=== PATIENT | female | born 1980 | race American Indian/Alaskan Native ===

== ENCOUNTER 2018-05-18 10:27 | Emergency (ER) | payer OTHER ==
[2018-05-18] MEDS ORDERED: MOTRIN PO ONE (11:04)
[2018-05-18] MEDS ORDERED: NORCO 5/325 PO ONE (11:04)
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
[2018-05-18 12:41] VITALS: BP 126/72
--- NOTE | 2018-05-18 14:16 | XRay Report ---
CERVICAL SPINE, 3 views: History: Neck pain. Findings: The vertebral bodies, disk spaces, posterior elements and prevertebral soft tissues are intact. The dens is intact. No acute fracture or malalignment is identified. Mild degenerative disc disease is noted at C4-5 and C5-6. Impression: Mild cervical spondylosis. No evidence for acute injury to the cervical spine.
== END 2018-05-18 12:40 | disposition home or self-care (01) ==
LOC: ED 10:27
DX: S40.022A Contusion of left upper arm, initial encounter (principal); S13.4XXA Sprain of ligaments of cervical spine, initial encounter; J45.909 Unspecified asthma, uncomplicated; V89.2XXA Person injured in unspecified motor-vehicle accident, traffic, initial encounter; Y93.89 Activity, other specified; Y92.410 Unspecified street and highway as the place of occurrence of the external cause; Y99.8 Other external cause status
CPT/HCPCS: 72040; 99284

== ENCOUNTER 2018-11-15 08:37 | Outpatient (CLI) | payer BC ==
--- NOTE | 2018-11-15 09:37 | XRay Report ---
BILATERAL HIP RADIOGRAPHS WITH PELVIS INDICATION: Left hip pain. COMPARISON: None similar. FINDINGS: An AP pelvic radiograph with frog-leg projection of bilateral hips demonstrate normal femoral head contours bilaterally. Imaged bilateral SI and hip joints appear intact. Mild bilateral acetabular degenerative spurring laterally, left more than right. Few small pelvic phleboliths. Nonobstructive bowel gas pattern. CONCLUSION: No acute radiographic abnormality, though mild degenerative changes noted, as described. Please correlate. Thank you for the opportunity to participate in this patient's care.
--- NOTE | 2018-11-15 11:04 | Mammography Report ---
BILATERAL DIGITAL SCREENING MAMMOGRAM WITH CAD:11/15/18 CLINICAL: Baseline screening. COMPARISON:None. FINDINGS: The breasts are mostly fatty. A partially circumscribed low density oval right lower outer periareolar asymmetry requires additional imaging. No architectural distortion or suspicious calcifications. The left breast is negative. IMPRESSION: Right asymmetry requiring further workup. BI-RADS CATEGORY: 0 -- Needs Additional Imaging RECOMMENDATION: Recall for a targeted right breast ultrasound to evaluate for a cyst or solid mass at 7 o'clock approximately 2 cm from the nipple. ACR BI-RADS MAMMOGRAPHIC CODES: 0 = Needs additional imaging evaluation; 1 = Negative; 2 = Benign; 3 = Probably benign; 4 = Suspicious; 5 = Malignant; 6 = Known biopsy-proven malignancy COMMENT: 1. Dense breast tissue, i.e., adenosis, fibrocystic changes, etc., may obscure an underlying neoplasm. 2. Approximately 10% of cancers are not detected with mammography. 3. A negative mammography report should not delay biopsy if a clinically suspicious mass is present.
--- NOTE | 2018-11-15 12:44 | Ultrasound Report ---
ULTRASOUND PELVIS COMPLETE - TRANSABDOMINAL AND TRANSVAGINAL: INDICATION: Pelvic and perineal pain. COMPARISON: None similar. FINDINGS: Transabdominal and transvaginal pelvic sonography performed in this patient with LMP of 11/10/2018 demonstrates an anteverted, fairly homogenous 9 x 4.8 x 5.5 cm uterus transabdominally. Normal imaged urinary bladder. Echogenic endometrial stripe thickness 0.5 cm as on endovaginal image 5. Cervix closed. No significant pelvic free fluid. Physiologic right ovary estimated at 3.5 x 2.8 x 2.2 cm. Left ovary though possibly enlarged at 5.6 x 7.1 x 5 cm with approximately 5.1 x 5 x 3.6 cm intrinsic/peripheral hypoechoic though complex mass lesion as on endovaginal images 32-35, amongst others. Some peripheral vascularity noted without definite demonstrable intrinsic blood flow endovaginally, though some intrinsic blood flow suggested on transabdominal color flow images 26-28. CONCLUSION: 1. Approximately 5 cm complex left adnexal/ovarian hypoechoic mass, inadequately characterized on this exam alone, as described above. 2. Other findings, as above. Please also correlate clinically, with prior relevant imaging if available, or further characterize/evaluate as with followup pelvic sonography in approximately 6 weeks or opposite phase of the menstrual cycle to assess for interval change or resolution. Thank you for the opportunity to participate in this patient's care.
== END 2018-11-15 08:38 | disposition home or self-care (01) ==
LOC: US 08:37
PROVIDERS: ATTEND Obstetrics & Gynecology
DX: Z12.31 Encounter for screening mammogram for malignant neoplasm of breast (principal); M16.0 Bilateral primary osteoarthritis of hip; R10.2 Pelvic and perineal pain; J45.909 Unspecified asthma, uncomplicated
CPT/HCPCS: 73521; 76830; 76856; 77067

== ENCOUNTER 2018-11-23 08:35 | Outpatient (CLI) | payer BC ==
--- NOTE | 2018-11-23 09:11 | Ultrasound Report ---
TARGETED RIGHT BREAST ULTRASOUND: 11/23/18 08:35:00 CLINICAL: Abnormal screening mammogram. COMPARISON: 11/15/18 FINDINGS: Ultrasound of the right breastdemonstrated an oval solid smooth hypoechoic mass at 7 o'clock 2 cm from the nipple. It correlates with the mammographic density and measures 8 x 5 x 7 mm. It has a hyperechoic capsule or pseudocapsule and produces shadowing. IMPRESSION: A probably benign 8mm solid mass at 7 o'clock 2 cm from the nipple. Sonographic characteristics suggest benign fibroadenoma. BI-RADS 3 - - Probably Benign RECOMMENDATION: 6 month followup right breast ultrasound to reevaluate the size of the mass.
== END 2018-11-23 08:36 | disposition home or self-care (01) ==
LOC: US 08:35
PROVIDERS: ATTEND Obstetrics & Gynecology
DX: R92.8 Other abnormal and inconclusive findings on diagnostic imaging of breast (principal); J45.909 Unspecified asthma, uncomplicated

== ENCOUNTER 2019-01-30 08:45 | Outpatient (CLI) | payer BC ==
--- NOTE | 2019-01-30 12:45 | Ultrasound Report ---
Pelvic and transvaginal sonography: Compared to 11/15/18. History: Ovarian cysts left side. Findings: Uterus measures 13.2 x 4.7 x 7.6 cm. Endometrial thickness 1.5 mm. No mass within the uterus. Right ovary 3.1 x 1.8 x 3.5 cm. No mass. Left ovary 5 x 6.4 x 4.7 cm complex cyst in the left ovary measures 5.1 cm no fluid in the cul-de-sac. Impression: Complex mass in the left ovary. No significant interval change.
== END 2019-01-30 08:46 | disposition home or self-care (01) ==
LOC: US 08:45
PROVIDERS: ATTEND Obstetrics & Gynecology
DX: N83.8 Other noninflammatory disorders of ovary, fallopian tube and broad ligament (principal); J45.909 Unspecified asthma, uncomplicated
CPT/HCPCS: 76830; 76856

== ENCOUNTER 2019-02-01 10:04 | Outpatient (CLI) | payer BC ==
[2019-02-01 10:57] LABS: Creatine Kinase MB 3.2 ng/mL (0.0-4.0)
--- NOTE | 2019-02-01 14:41 | XRay Report ---
CHEST 2 VIEWS INDICATION: Dizziness, chest pain. COMPARISON: None similar. FINDINGS: PA and lateral chest radiographs demonstrate normal cardiomediastinal silhouette. Clear lungs. Mild multilevel mid thoracic spine degenerative spurring. Slight osteopenia not excluded. Abdomen shielded. CONCLUSION: No acute disease in the chest. Thank you for the opportunity to participate in this patient's care.
== END 2019-02-01 10:05 | disposition home or self-care (01) ==
LOC: LAB 10:04
PROVIDERS: ATTEND Family Medicine
DX: R07.9 Chest pain, unspecified (principal); R42 Dizziness and giddiness
CPT/HCPCS: 36415; 71046; 82553; 83036; 84484

== ENCOUNTER 2019-02-11 12:41 | Emergency (ER) | payer BC ==
[2019-02-11 13:05] VITALS: BP 138/94
--- NOTE | 2019-02-11 13:06 | Emergency Department Report ---
Blank Doc - Documentation Documentation: pt presents to the ED for congestion, sneezing, mild cough that began yesterday took benadryl and singulair no fever PMHx asthma (+) seasonal allergies LNMP January 24 non smoker occ drinker no drug use
--- NOTE | 2019-02-11 14:13 | XRay Report ---
PROCEDURE: XR CHEST ROUTINE 2V TECHNIQUE: Frontal and lateral chest radiographs. HISTORY: cough COMPARISONS: None FINDINGS: The cardiomediastinal silhouette is normal. No consolidation. No pleural effusion. No pneumothorax. No acute osseous abnormality. IMPRESSION: No acute process in the chest. This document is electronically signed by Niya Driscoll., Feb 11 2019 02:11:29 PM ET
[2019-02-11] MEDS ORDERED: LIDOCAINE VISCOUS 2% PO ONE (14:23)
[2019-02-11] MEDS ORDERED: VICKS SINEX NS ONE (14:23)
--- NOTE | 2019-02-11 14:32 | Emergency Department Report ---
ED General Adult HPI - General Chief complaint: Upper Respiratory Infection Stated complaint: COUGH/CHEST PAIN Time Seen by Provider: 02/11/19 13:03 Source: patient Mode of arrival: Ambulatory Limitations: No Limitations - History of Present Illness Initial comments: Patient is a 38-year-old femalewith past medical history presents with cough and sneezing and congestion. Patient's symptoms are moderate coughing makes her symptoms were nothing makes it better. Patient states that she's also been around sick contacts. She works as an employee upstairs at [employer] patient has no chest pain no headache no neck pain no fever. Severity scale (0 -10): 4 - Related Data Previous Rx's Medication Instructions Recorded Last Taken Type Cyclobenzaprine [Flexeril] 10 mg PO QHS PRN #10 tablet 05/18/18 Unknown Rx Ibuprofen [Motrin] 600 mg PO Q8H PRN #30 tablet 05/18/18 Unknown Rx Loratadine [Allergy] 10 mg PO DAILY #30 tablet 02/11/19 Unknown Rx predniSONE [Deltasone] 20 mg PO BID #10 tab 02/11/19 Unknown Rx Allergies Allergy/AdvReac Type Severity Reaction Status Date / Time No Known Allergies Allergy Verified 02/11/19 12:42 ED Review of Systems ROS: Stated complaint: COUGH/CHEST PAIN Other details as noted in HPI Constitutional: denies: chills, fever Eyes: denies: eye pain, eye discharge, vision change ENT: denies: ear pain, throat pain Respiratory: cough. denies: shortness of breath, wheezing Cardiovascular: denies: chest pain, palpitations Endocrine: no symptoms reported Gastrointestinal: denies: abdominal pain, nausea, diarrhea Genitourinary: denies: urgency, dysuria, discharge Musculoskeletal: denies: back pain, joint swelling, arthralgia Skin: denies: rash, lesions Neurological: denies: headache, weakness, paresthesias Psychiatric: denies: anxiety, depression Hematological/Lymphatic: denies: easy bleeding, easy bruising ED Past Medical Hx - Past Medical History Hx Asthma: Yes - Surgical History Additional Surgical History: x3. tubal ligation - Social History Smoking Status: Never Smoker Substance Use Type: Alcohol - Medications Home Medications: Home Medications Medication Instructions Recorded Confirmed Last Taken Type Cyclobenzaprine [Flexeril] 10 mg PO QHS PRN #10 tablet 05/18/18 Unknown Rx Ibuprofen [Motrin] 600 mg PO Q8H PRN #30 tablet 05/18/18 Unknown Rx Loratadine [Allergy] 10 mg PO DAILY #30 tablet 02/11/19 Unknown Rx predniSONE [Deltasone] 20 mg PO BID #10 tab 02/11/19 Unknown Rx ED Physical Exam - General Limitations: No Limitations General appearance: alert, in no apparent distress - Head Head exam: Present: atraumatic, normocephalic - Eye Eye exam: Present: normal appearance - ENT ENT exam: Present: mucous membranes moist, other (nasal congestion ) - Neck Neck exam: Present: normal inspection - Respiratory Respiratory exam: Present: normal lung sounds bilaterally. Absent: respiratory distress - Cardiovascular Cardiovascular Exam: Present: regular rate, normal rhythm. Absent: systolic murmur, diastolic murmur, rubs, gallop - GI/Abdominal GI/Abdominal exam: Present: soft, normal bowel sounds - Extremities Exam Extremities exam: Present: normal inspection - Back Exam Back exam: Present: normal inspection - Neurological Exam Neurological exam: Present: alert, oriented X3 - Psychiatric Psychiatric exam: Present: normal affect, normal mood - Skin Skin exam: Present: warm, dry, intact, normal color. Absent: rash ED Course Vital Signs 02/11/19 13:04 Temperature 98.3 F Pulse Rate 104 H Respiratory 22 Rate Blood Pressure 138/94 [right`] O2 Sat by Pulse 99 Oximetry ED Medical Decision Making - Medical Decision Making Cdx: Viral URI I willl get afrin and viscous lidocaine for patient. Will send patient home with steroid pack. Discussed plan with patient. Patient agrees with plan additional verbal discharge instructions were given. Critical care attestation.: If time is entered above; I have spent that time in minutes in the direct care of this critically ill patient, excluding procedure time. ED Disposition Clinical Impression: Sneezing, Viral URI Disposition: DC- TO HOME OR SELFCARE Is pt being admited?: No Does the pt Need Aspirin: No Condition: Stable Instructions: Upper Respiratory Infection (ED) Prescriptions: Loratadine [Allergy] 10 mg PO DAILY #30 tablet predniSONE [Deltasone] 20 mg PO BID #10 tab Referrals: VICTORIA LARA DO [Primary Care Provider] - 3-5 Days
== END 2019-02-11 14:52 | disposition home or self-care (01) ==
LOC: ED 12:41
DX: J06.9 Acute upper respiratory infection, unspecified (principal); J45.909 Unspecified asthma, uncomplicated; Z98.51 Tubal ligation status
CPT/HCPCS: 71046; 99283

== ENCOUNTER 2019-03-13 08:27 | Outpatient (CLI) | payer BC ==
--- NOTE | 2019-03-13 11:42 | Ultrasound Report ---
ULTRASOUND PELVIC COMPLETE ULTRASOUND TRANSVAGINAL HISTORY: Ovarian cyst. COMPARISON: . TECHNIQUE: Transabdominal and transvaginal ultrasound with color doppler interrogation. FINDINGS: Uterus: Anteverted. The uterus is mildly enlarged measuring 13.5 x 5.0 x 10 years. No obvious uterine fibroid disease is appreciated. Normal cervix. Endometrium: 9.7 mm. No focal abnormality. Right ovary: 2.7 x 2.0 x 2.0 cm. No focal abnormality. Left ovary: 5.8 x 4.5 x 5.3 cm. A 4.6 x 3.7 x 4.4 cm cyst containing debris is identified in the left ovary. No evidence for internal septations or calcifications. This has decreased from 5.1 x 3.9 x 4.0 cm on the previous exam. No pelvic fluid or mass is identified. Normal color doppler interrogation. IMPRESSION: Mildly enlarged uterus but no obvious uterine fibroids. 4.6 cm cyst containing debris in the left ovary which has decreased slightly since the previous exam.
== END 2019-03-13 08:28 | disposition home or self-care (01) ==
LOC: US 08:27
PROVIDERS: ATTEND Obstetrics & Gynecology
DX: N85.2 Hypertrophy of uterus (principal); J45.909 Unspecified asthma, uncomplicated
CPT/HCPCS: 76830; 76856

== ENCOUNTER 2019-07-02 06:07 | Day surgery (SDC) | payer BC ==
[2019-07-02] MEDS ORDERED: SODIUM CHLORIDE 0.9% 1000 ML 1,000 ML IV SCH (07:00)
--- NOTE | 2019-07-02 07:36 | Anesthesia Consultation ---
Anesthesia Consult and Med Hx Date of service: 07/02/19 - Airway Anesthetic Teeth Evaluation: Good ROM Head & Neck: Adequate Mental/Hyoid Distance: Adequate Mallampati Class: Class I Intubation Access Assessment: Good - Pulmonary Exam CTA: Yes - Cardiac Exam Cardiac Exam: RRR - Pre-Operative Health Status ASA Pre-Surgery Classification: ASA2 Proposed Anesthetic Plan: MAC - Pulmonary Hx Asthma: Yes
--- NOTE | 2019-07-02 07:37 | Anesthesia Day of Surgery ---
Anesthesia Day of Surgery - Day of Surgery Patient Examined: Yes Patient H&P Reviewed: Yes Patient is NPO: Yes Beta Blockers: No
[2019-07-02] MEDS ORDERED: MIDAZOLAM 2 MG/2 ML INJ ONE (07:40)
[2019-07-02] MEDS ORDERED: PROPOFOL 200 MG/20 ML VIAL IV ONE ×2 (07:41)
[2019-07-02] MEDS ORDERED: LIDOCAINE (2%) 20 MG/1 ML VIAL 20 ML MDV INFILTRATI ONE (07:53)
--- NOTE | 2019-07-02 08:25 | Short Stay Summary ---
Short Stay Documentation Date of service: 07/02/19 Narrative H&P: Patient is a 39 yo aaf who presents for egd/colonoscopy. Pt with dyspepsia/gerd symptoms, chronic abd pain, constipation and hematochezia. chronic symptoms with recent worsening. no prior endoscopy. - History H&P: obtained from office Past Medical History: other (no changes from office note) Past Surgical History: Other (no changes) Social history: no significant social history - Allergies and Medications Current Medications: Allergies No Known Allergies Allergy (Verified 02/11/19 12:42) Home Medications Medication Instructions Recorded Confirmed Last Taken Type Ibuprofen [Motrin] 600 mg PO Q8H PRN #30 tablet 05/18/18 06/29/19 Unknown Rx Loratadine [Allergy] 10 mg PO DAILY #30 tablet 02/11/19 06/29/19 06/29/19 Rx Advair Diskus 250-50 mcg 1 puff INHALATION BID 06/29/19 07/02/19 07/02/19 History Albuterol *Only Ed* 2 puff INHALATION PRN PRN 06/29/19 07/02/19 06/27/19 History Active Medications Sodium Chloride (Nacl 0.9% 1000 Ml) 1,000 mls @ 50 mls/hr IV DIRECT FERNANDO Last Admin: 07/02/19 07:31 Dose: 50 mls/hr Documented by: - Physical exam General appearance: no acute distress Lungs: Clear to auscultation Heart: Regular rate Gastrointestinal: normal - Brief post op/procedure progress note Date of procedure: 07/02/19 Pre-op diagnosis: abdominal pain, dyspepsia, hematochezia Post-op diagnosis: other (gastric ulcer, gastritis; internal hemorrhoids) Procedure: 1. EGD with biopsy 2. Colonoscopy Anesthesia: MAC Findings: EGD: small, clean based gastric ulcer; gastritis Colonoscopy: internal hemorrhoids Surgeon: KAVON CARLSON Estimated blood loss: minimal Pathology: list (Fariha Padilla - gastric biopsies) Specimen disposition: to lab Condition: stable - Disposition Condition at discharge: Good Disposition: DC-01 TO HOME OR SELFCARE Short Stay Discharge Plan Follow up with: VICTORIA LARA DO [Primary Care Provider] - 7 Days
--- NOTE | 2019-07-02 08:33 | Operative Report ---
Operative Report Operative Report: Esophagogastroduodenoscopy Procedure Note with Biopsies Date of procedure: 07/02/2019 Endoscopist: Jordy Feliciano Pre-op diagnosis: Dyspepsia, GERD, abdominal pain Post-op diagnosis: Small clean based gastric ulcer, mild erythematous gastric mucosa Anesthesia: MAC Complications: No immediate complications Estimated blood loss: minimal Procedure: After consent was obtained, the patient was placed in the left lateral decubitus position. The olympus endoscope was inserted into the patient's mouth under direct vision, and advanced into the 2nd portion of the duodenum without difficulty. The patient tolerated the procedure well. The views of the mucosa were good. Patient's vital signs were monitored continuously throughout the procedure. Findings: The esophagus appears normal There was a small (~3 mm) clean based ulcer in the incisura. There was mild erythematous mucosa in the gastric body. Gastric biopsies were obtained to evaluate for h pylori. The duodenum appeared normal. Impression: 1. Small, clean based gastric ulcer. 2. Erythematous gastric mucosa. Biopsied to evaluate for H pylori. Recommendations: -follow-up pathology -continue anti-acid medication daily -avoid NSAID's -colonoscopy to follow
--- NOTE | 2019-07-02 08:37 | Operative Report ---
Operative Report Operative Report: Colonoscopy Procedure Note Date of procedure: 07/02/2019 Endoscopist: Jordy Feliciano Pre-op diagnosis: Hematochezia, abdominal pain, constipation Post-op diagnosis: Internal hemorrhoids Anesthesia: MAC Complications: No immediate complications Estimated blood loss: None Procedure: After consent was obtained, the patient was placed in the left lateral decubitus position. The olympus colonoscope was inserted into the patient's rectum under direct vision, and advanced to the cecum without difficulty. The patient tolerated the procedure well. The views of the mucosa were good. The quality of prep was good. The patient's vital signs were monitored continuously throughout the procedure. Findings: Internal hemorrhoids were visualized on retroflexion view. Otherwise, the colon appeared normal. Impression: 1. Internal hemorrhoids, otherwise normal colonoscopy Recommendations: -bowel regimen daily to avoid constipation/straining -hemorrhoidal cream/suppository as needed -return to GI clinic as scheduled
[2019-07-02 08:58] VITALS: BP 116/71
--- NOTE | 2019-07-02 14:23 | Post Anesthesia Evaluation ---
- Post Anesthesia Evaluation Patient Participated: Yes Airway Patent: Yes Stable Respiratory Function: Yes Nausea/Vomiting: No Temp > 96.8F: Yes Pain Manageable: Yes Adequeate Hydration: Yes Anesthesia Complications: No Block Receding Appropriately: Not Applicable Patient on Ventilator: No
== END 2019-07-02 06:08 | disposition home or self-care (01) ==
LOC: GIO 06:07
PROVIDERS: ATTEND Internal Medicine Gastroenterology
DX: K92.1 Melena (principal); K29.50 Unspecified chronic gastritis without bleeding; K59.00 Constipation, unspecified; R10.9 Unspecified abdominal pain; K64.8 Other hemorrhoids; K30 Functional dyspepsia; K21.9 Gastro-esophageal reflux disease without esophagitis; J45.909 Unspecified asthma, uncomplicated; B96.81 Helicobacter pylori [H. pylori] as the cause of diseases classified elsewhere; Z79.899 Other long term (current) drug therapy; Z98.891 History of uterine scar from previous surgery; Z98.890 Other specified postprocedural states
CPT/HCPCS: 43239; 45378; 88305; 88342; J2250; J2704; J7030

== ENCOUNTER 2019-07-13 16:06 | Outpatient (CLI) | payer BC ==
[2019-07-13 16:23] LABS: Basophils # (Auto) 0.1 K/mm3 (0.0-0.1); Basophils % (Auto) 0.9 % (0.0-1.8); Eosinophils # (Auto) 0.3 K/mm3 (0.0-0.4); Hematocrit 33.7 % (30.3-42.9); Hemoglobin 10.7 gm/dl (10.1-14.3); Lymphocytes # (Auto) 3.3 K/mm3 (1.2-5.4); Lymphocytes % (Auto) 35.5 % (13.4-35.0); Mean Corpuscular HGB Conc 32 % (30-34); Mean Corpuscular Volume 73 fl (79-97); Monocytes # (Auto) 0.6 K/mm3 (0.0-0.8); Monocytes % (Auto) 6.6 % (0.0-7.3); Platelet Count 269 K/mm3 (140-440); Red Blood Count 4.63 M/mm3 (3.65-5.03); Red Cell Distribution Width 15.8 % (13.2-15.2)
[2019-07-13 17:27] LABS: Alanine Aminotransferase 18 units/L (7-56); Albumin 4.3 g/dL (3.9-5); BUN/Creatinine Ratio 10; Blood Urea Nitrogen 9 mg/dL (7-17); Calcium 9.2 mg/dL (8.4-10.2); Chol/HDL Ratio 3.69 %; HDL Cholesterol 42 mg/dL (40-59); Hemolysis Index 0; LDL Cholesterol,Direct 104 mg/dL (50-130)
[2019-07-18 14:28] LABS: Vitamin D, 25-OH, D2 <4 ng/mL
== END 2019-07-13 16:07 | disposition home or self-care (01) ==
LOC: LAB 16:06
PROVIDERS: ATTEND Family Medicine
DX: Z00.00 Encounter for general adult medical examination without abnormal findings (principal); J45.909 Unspecified asthma, uncomplicated
CPT/HCPCS: 36415; 80053; 80061; 82306; 83036; 84439; 84443; 85025

== ENCOUNTER 2019-09-27 08:45 | Outpatient (CLI) | payer BC ==
[2019-09-27 09:04] LABS: Basophils # (Auto) 0.1 K/mm3 (0.0-0.1); Basophils % (Auto) 1.4 % (0.0-1.8); Eosinophils # (Auto) 0.2 K/mm3 (0.0-0.4); Eosinophils % (Auto) 3.7 % (0.0-4.3); Hematocrit 32.9 % (30.3-42.9); Hemoglobin 10.5 gm/dl (10.1-14.3); Lymphocytes # (Auto) 2.6 K/mm3 (1.2-5.4); Lymphocytes % (Auto) 44.1 % (13.4-35.0); Mean Corpuscular HGB Conc 32 % (30-34); Mean Corpuscular Volume 72 fl (79-97); Monocytes # (Auto) 0.4 K/mm3 (0.0-0.8); Platelet Count 286 K/mm3 (140-440); Red Blood Count 4.57 M/mm3 (3.65-5.03); Red Cell Distribution Width 16.9 % (13.2-15.2)
== END 2019-09-27 08:46 | disposition home or self-care (01) ==
LOC: LAB 08:45
PROVIDERS: ATTEND Nurse Practitioner Women's Health
DX: Z13.89 Encounter for screening for other disorder (principal); Z13.29 Encounter for screening for other suspected endocrine disorder; Z13.0 Encounter for screening for diseases of the blood and blood-forming organs and certain disorders involving the immune mechanism
CPT/HCPCS: 36415; 84146; 84443; 85025

== ENCOUNTER 2019-12-07 08:13 | Outpatient (CLI) | payer BC ==
[2019-12-07 09:27] LABS: Hematocrit 33.7 % (30.3-42.9); Hemoglobin 10.5 gm/dl (10.1-14.3); Mean Corpuscular HGB Conc 31 % (30-34); Mean Corpuscular Volume 72 fl (79-97); Platelet Count 291 K/mm3 (140-440); Red Blood Count 4.71 M/mm3 (3.65-5.03); Red Cell Distribution Width 16.3 % (13.2-15.2)
[2019-12-07 09:51] LABS: BUN/Creatinine Ratio 60; Blood Urea Nitrogen 12 mg/dL (7-17); Calcium 8.8 mg/dL (8.4-10.2); Hemolysis Index 1; LDL Cholesterol,Direct 4 mg/dL (50-130)
[2019-12-07 10:30] LABS: Alanine Aminotransferase 14 units/L (7-56); Albumin 3.9 g/dL (3.9-5); Chol/HDL Ratio 2.87 %; HDL Cholesterol 41 mg/dL (40-59)
== END 2019-12-07 08:14 | disposition home or self-care (01) ==
LOC: LAB 08:13
PROVIDERS: ATTEND Obstetrics & Gynecology
DX: Z13.220 Encounter for screening for lipoid disorders (principal); Z13.1 Encounter for screening for diabetes mellitus; Z13.0 Encounter for screening for diseases of the blood and blood-forming organs and certain disorders involving the immune mechanism
CPT/HCPCS: 36415; 80053; 80061; 83036; 84443; 85027

== ENCOUNTER 2019-12-13 08:19 | Outpatient (CLI) | payer BC ==
--- NOTE | 2019-12-13 09:25 | Ultrasound Report ---
BILATERAL DIGITAL DIAGNOSTIC MAMMOGRAM 12/13/2019 RIGHT LIMITED BREAST ULTRASOUND INDICATION: Follow-up evaluation of finding noted previously in the right breast on ultrasound. Patie nt due for annual bilateral mammogram. TECHNIQUE: Digital bilateral mammographic imaging was performed. COMPARISON: 11/23/2018, 11/15/2018. FINDINGS: Breasts demonstrate scattered fibroglandular breast density. A right lower outer anterior breast oval circumscribed low-density lesion appears stable mammographically. No new suspicious findings within either breast. A targeted ultrasound of the right breast focused at the 7:00 position, 2 cm from the nipple, shows a 8 x 4 x 7 mm circumscribed hypoechoic lesion which appears not significantly changed from prior exam . No interval detrimental change or new suspicious finding is identified. IMPRESSION: No significant change in probably benign right breast lesion at the 7:00 position. No new suspicious findings within either breast. A follow-up targeted right breast ultrasound is recommended in one yea r when the patient returns for her annual bilateral mammogram. At that time over 2 years imaging was been established. BI-RADS Category 3: Probably Benign. A "normal" or negative report should not discourage follow up or biopsy of a clinically significant f inding. A written summary of these findings will be mailed to the patient. The patient will be entered into a mammography reporting system which will generate a reminder letter for the patient's next appointmen t at the appropriate interval. According to the [employer], yearly mammograms are recommended starting at age 40 and continuing as long as a woman is in good health. Breast MRI is recommended for women with an sinai roximately 20-25% or greater lifetime risk of breast cancer, including women with a strong family his tory of breast or ovarian cancer and women who have been treated for Hodgkin's disease. Signer Name: Marquis Aviles MD Signed: 12/13/2019 9:21 AM Workstation Name: [id number]
--- NOTE | 2019-12-13 11:16 | Ultrasound Report ---
Pelvic complete Ultrasound HISTORY: OVARIAN CYST,LEFT SIDE. TECHNIQUE: Grayscale and color Doppler sonographic evaluation of the pelvis was performed. COMPARISON: 03/13/2019, 01/30/2019, 11/15/2018. FINDINGS: The uterus measures 13.2 x 5.5 x 5.5 cm. Endometrial thickness measures 4.7 mm. No discrete uterine m ass is identified. The right ovary measures 2.6 x 1.6 x 2.1 cm with benign-appearing small cyst versus follicle noted. The left ovary contains a now 5.2 x 3.8 x 5 cm mildly complex hypoechoic lesion which appears slightl y increased in size from prior measurement of 4.6 x 3.7 x 4.4 cm. There is hypoechoic internal compon ent to this, however no definite internal vascular flow could be demonstrated. Vascular flow is demon strated to both ovaries. IMPRESSION: Slight increased size of previously noted mildly complex left ovarian lesion. Signer Name: Marquis Aviles MD Signed: 12/13/2019 11:11 AM Workstation Name: [id number]
== END 2019-12-13 08:20 | disposition home or self-care (01) ==
LOC: MAMMO 08:19
PROVIDERS: ATTEND Obstetrics & Gynecology
DX: R92.8 Other abnormal and inconclusive findings on diagnostic imaging of breast (principal); R10.2 Pelvic and perineal pain; N83.292 Other ovarian cyst, left side
CPT/HCPCS: 76830; 76856; 77066

== ENCOUNTER 2020-01-09 09:22 | Outpatient (CLI) | payer BC ==
[2020-01-09 10:40] LABS: Blood Urea Nitrogen 10 mg/dL (7-17)
--- NOTE | 2020-01-09 12:12 | Cat Scan Report ---
CT PELVIS WITH CONTRAST HISTORY: Ovarian mass, pain and bleeding. COMPARISON: None. TECHNIQUE: CT images of the pelvis were obtained following administration of intravenous contrast. O ral contrast was also administered. CONTRAST: 100 ml of Omnipaque 300 FINDINGS: Lymphatics: No lymphadenopathy. Visualized Bowel/Peritoneum: Visualized portions demonstrate no significant abnormality. Appendix not visualized. No free air. No free fluid. : The uterus is mildly enlarged and measures 13.4 x 6.5 x 7.8 cm. A questionable fibroid of the ant erior uterine body is located intramural and measures 5.0 x 2.8 x 3.9 cm. What has been described as a left ovarian mass is in contact with the anterior uterine fundus. The mass is oval and smooth and m easures 5.2 x 4.6 x 4.9 cm. 3.5 cm of the inferior margin is contiguous with the uterus. A single irr egular 1.3 cm calcification in the superior periphery of the mass. The mass is also in contact with w hat appears to be in otherwise normal left ovary measuring 3.2 x 2.5 x 2.7 cm. No endometrial thicken ing or fluid. A normal right ovary measures 3.5 x 3.0 x 1.8 cm. Osseous Structures: No significant abnormality. Additional Findings: No free fluid. IMPRESSION: 1. A mildly enlarged uterus with a questionable anterior uterine body intramural fibroid measuring 5 cm. 2. What has been described as a left ovarian mass measures 5.2 x 4.6 x 4.9 cm. The mass is in contact with both the uterus and the left ovary. The differential includes a pedunculated uterine fibroid wi th a 3.5 cm pedicle and other ovarian masses such as dermoid cyst, endometrioma and neoplasms, both b enign and malignant. 3. The left ovary is otherwise normal. 4. Normal right ovary. 5. MRI without and with contrast may provide more definitive imaging to determine if there are one or more uterine fibroids and to determine the organ of origin for the pelvic mass. Signer Name: Mark Anthony Novak MD Signed: 01/09/2020 12:08 PM Workstation Name: [id number]
== END 2020-01-09 09:23 | disposition home or self-care (01) ==
LOC: CT 09:22
PROVIDERS: ATTEND Obstetrics & Gynecology
DX: N85.2 Hypertrophy of uterus (principal); N94.89 Other specified conditions associated with female genital organs and menstrual cycle
CPT/HCPCS: 36415; 72193; 82565; 84520; Q9967

== ENCOUNTER 2020-01-22 10:09 | Emergency (ER) | payer BC ==
[2020-01-22 10:34] VITALS: BP 135/80
--- NOTE | 2020-01-22 11:01 | Emergency Department Report ---
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 Patient states that she did a telemedicine appointment with Dr. Cerna and she was placed on steroids and antibiotics and had finished all of them but still not feeling well. 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 Patient denies any fever no loss of taste body aches has improved since last week. She does admit to some shortness of breath and cough. She reports she has increased use of her nebulizer machine. Patient denies any diabetes hypertension immune compromise disease. Current medication is albuterol nebulizer no known drug allergies. Onset/Timin -: week(s) Location: chest, back Severity scale (0 -10): 6 Consistency: intermittent Improves with: none Worsens with: none Associated Symptoms: cough, shortness of breath. denies: diaphoresis, fever/chills, headaches, malaise, nausea/vomiting, rash Treatments Prior to Arrival: none - Related Data Home Medications Medication Instructions Recorded Confirmed Last Taken Advair Diskus 250-50 mcg 1 puff INHALATION BID 06/29/19 07/02/19 07/02/19 Albuterol *Only Ed* 2 puff INHALATION PRN PRN 06/29/19 07/02/19 06/27/19 Previous Rx's Medication Instructions Recorded Last Taken Type Ibuprofen [Motrin] 600 mg PO Q8H PRN #30 tablet 05/18/18 Unknown Rx Loratadine [Allergy] 10 mg PO DAILY #30 tablet 02/11/19 06/29/19 Rx Allergies Allergy/AdvReac Type Severity Reaction Status Date / Time No Known Allergies Allergy Verified 02/11/19 12:42 ED Review of Systems ROS: Stated complaint: CHEST PAIN/SOB Other details as noted in HPI ED Past Medical Hx - Past Medical History Previous Medical History?: Yes Hx Asthma: Yes - Surgical History Past Surgical History?: Yes Additional Surgical History: x3. tubal ligation - Social History Smoking Status: Never Smoker Substance Use Type: None - Medications Home Medications: Home Medications Medication Instructions Recorded Confirmed Last Taken Type Ibuprofen [Motrin] 600 mg PO Q8H PRN #30 tablet 05/18/18 06/29/19 Unknown Rx Loratadine [Allergy] 10 mg PO DAILY #30 tablet 02/11/19 06/29/19 06/29/19 Rx Advair Diskus 250-50 mcg 1 puff INHALATION BID 06/29/19 07/02/19 07/02/19 History Albuterol *Only Ed* 2 puff INHALATION PRN PRN 06/29/19 07/02/19 06/27/19 History ED Physical Exam - General Limitations: No Limitations General appearance: alert, in no apparent distress - Head Head exam: Present: atraumatic, normocephalic - Eye Eye exam: Present: normal appearance - ENT ENT exam: Present: mucous membranes moist - Neck Neck exam: Present: normal inspection - Respiratory Respiratory exam: Present: normal lung sounds bilaterally. Absent: respiratory distress - Cardiovascular Cardiovascular Exam: Present: regular rate, normal rhythm. Absent: systolic murmur, diastolic murmur, rubs, gallop - GI/Abdominal GI/Abdominal exam: Present: soft, normal bowel sounds - Extremities Exam Extremities exam: Present: normal inspection - Back Exam Back exam: Present: normal inspection - Neurological Exam Neurological exam: Present: alert, oriented X3 - Psychiatric Psychiatric exam: Present: normal affect, normal mood - Skin Skin exam: Present: warm, dry, intact, normal color. Absent: rash ED Course Vital Signs 01/22/20 10:27 Temperature 98.1 F Pulse Rate 92 H Respiratory 18 Rate Blood Pressure 135/80 O2 Sat by Pulse 100 Oximetry ED Medical Decision Making - Lab Data Result diagrams: 01/22/20 10:57 01/22/20 10:57 - Radiology Data Radiology results: report reviewed Print Report Referring Physician:ANDIE LIVINGSTONPatient Name:SUSANNAH TAMEZPatient ID:[id number] of :[id number]:FemaleAccession:[id number] Date:[id number] Status:Finalized Findings [facility] [address] [place] [address] XRay Report Signed Patient: SUSANNAH TAMEZ MR #: [id number] : 1980 Acct:[id number] Age/Sex: 39 / F ADM Date: 01/22/20 Loc: ED Attending Dr: Ordering Physician: ANDIE LIVINGSTON MD Date of Service: 01/22/20 Procedure(s): XR chest 1V ap Accession Number(s): [id number] cc: ANDIE LIVINGSTON MD Fluoro Time In Minutes: CHEST 1 VIEW INDICATION / CLINICAL INFORMATION: Chest Pain. COMPARISON: None available. FINDINGS: SUPPORT DEVICES: None. HEART / MEDIASTINUM: No significant abnormality. LUNGS / PLEURA: No significant pulmonary or pleural abnormality. No pneumothorax. ADDITIONAL FINDINGS: No significant additional findings. IMPRESSION: 1. No acute findings. 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 Patient states that she did a telemedicine appointment with Dr. Cerna and she was placed on steroids and antibiotics and had finished all of them but still not feeling well. 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 Patient denies any fever no loss of taste body aches has improved since last week. She does admit to some shortness of breath and cough. She reports she has increased use of her nebulizer machine. Patient denies any diabetes hypertension immune compromise disease. Current medication is albuterol nebulizer no known drug allergies. Chest x-ray is negative for any acute abnormalities. Lung exam is normal. EKGs shows no acute OK, 2- troponins. Patient will be discharged when to follow-up with her primary care provider. Patient can take [id number] Tylenol for body aches Critical care attestation.: If time is entered above; I have spent that time in minutes in the direct care of this critically ill patient, excluding procedure time. ED Disposition Clinical Impression: Atypical chest pain, Body aches Disposition: - TO HOME OR SELFCARE Is pt being admited?: No Does the pt Need Aspirin: No Condition: Stable Instructions: Chest Pain (ED) Additional Instructions: Chest x-ray is negative for any acute findings, troponins is negative for any cardiac damage, EKG is stable. I recommend taking acetaminophen/Tylenol as needed for pain increase your fluid intake use your nebulizer as you have in the past. Follow-up with your primary care provider. Referrals: PRIMARY CARE, [Primary Care Provider] - 3-5 Days Forms: Work/School Release Form(ED)
--- NOTE | 2020-01-22 11:27 | XRay Report ---
CHEST 1 VIEW INDICATION / CLINICAL INFORMATION: Chest Pain. COMPARISON: None available. FINDINGS: SUPPORT DEVICES: None. HEART / MEDIASTINUM: No significant abnormality. LUNGS / PLEURA: No significant pulmonary or pleural abnormality. No pneumothorax. ADDITIONAL FINDINGS: No significant additional findings. IMPRESSION: 1. No acute findings. Signer Name: Davey Manning MD Signed: 01/22/2020 11:22 AM Workstation Name: [email or web address]
[2020-01-22 11:42] LABS: Basophils % (Auto) 0.6 % (0.0-1.8); Eosinophils # (Auto) 0.2 K/mm3 (0.0-0.4); Eosinophils % (Auto) 3.4 % (0.0-4.3); Hematocrit 36.8 % (30.3-42.9); Hemoglobin 11.6 gm/dl (10.1-14.3); Lymphocytes # (Auto) 2.5 K/mm3 (1.2-5.4); Lymphocytes % (Auto) 36.3 % (13.4-35.0); Mean Corpuscular HGB Conc 32 % (30-34); Mean Corpuscular Volume 74 fl (79-97); Monocytes # (Auto) 0.3 K/mm3 (0.0-0.8); Monocytes % (Auto) 3.9 % (0.0-7.3); Platelet Count 272 K/mm3 (140-440); Red Blood Count 4.94 M/mm3 (3.65-5.03)
[2020-01-22 12:02] LABS: BUN/Creatinine Ratio 19; Blood Urea Nitrogen 15 mg/dL (7-17); Calcium 8.9 mg/dL (8.4-10.2); Hemolysis Index 8
== END 2020-01-22 17:06 | disposition home or self-care (01) ==
LOC: ED 10:09
DX: R07.89 Other chest pain (principal); R53.81 Other malaise; R06.02 Shortness of breath; R05 Cough; J45.909 Unspecified asthma, uncomplicated; Z98.51 Tubal ligation status; Z98.890 Other specified postprocedural states; Z79.899 Other long term (current) drug therapy; Z79.1 Long term (current) use of non-steroidal anti-inflammatories (NSAID)
CPT/HCPCS: 36415; 71045; 80048; 84484; 85025; 93005

== ENCOUNTER 2020-12-17 08:53 | Outpatient (CLI) | payer BC ==
[2020-12-17 09:38] LABS: Basophils # (Auto) 0.1 K/mm3 (0.0-0.1); Eosinophils # (Auto) 0.2 K/mm3 (0.0-0.4); Eosinophils % (Auto) 3.1 % (0.0-4.3); Hemoglobin 13.1 gm/dl (10.1-14.3); Lymphocytes # (Auto) 2.2 K/mm3 (1.2-5.4); Lymphocytes % (Auto) 37.8 % (13.4-35.0); Mean Corpuscular HGB Conc 33 % (30-34); Mean Corpuscular Volume 80 fl (79-97); Monocytes # (Auto) 0.3 K/mm3 (0.0-0.8); Monocytes % (Auto) 4.7 % (0.0-7.3); Platelet Count 251 K/mm3 (140-440); Red Blood Count 4.97 M/mm3 (3.65-5.03)
[2020-12-17 09:46] LABS: Alanine Aminotransferase 15 units/L (7-56); Albumin 4.1 g/dL (3.9-5); BUN/Creatinine Ratio 11; Blood Urea Nitrogen 9 mg/dL (7-17); Calcium 9.1 mg/dL (8.4-10.2); Chol/HDL Ratio 2.87 %; HDL Cholesterol 55 mg/dL (40-59); Hemolysis Index 1; LDL Cholesterol,Direct 107 mg/dL (50-130)
== END 2020-12-17 08:54 | disposition home or self-care (01) ==
LOC: LAB 08:53
PROVIDERS: ATTEND Internal Medicine
DX: Z11.3 Encounter for screening for infections with a predominantly sexual mode of transmission (principal)
CPT/HCPCS: 36415; 80053; 80061; 82607; 83036; 84443; 85025; 86038

== ENCOUNTER 2021-01-08 08:42 | Outpatient (CLI) | payer BC ==
--- NOTE | 2021-01-09 11:15 | Nuclear Medicine Report ---
APPROVED REPORT Exam: Nuclear Stress Test Indication: Chest pain Patient Location: [facility]OLOG[facility] Ht: 5 ft 9 in Wt: 250 lbs BSA: 2.27 m2 HR: 76 bpm BP: 131/65 mmHg BMI: 36.91 Rhythm: NSR Stress Test Details Stress Test: Exercise stress testing was performed using a Halle protocol. HR Resting HR: 76 bpmMax Heart Rate (APMHR): 178 bpm Max HR Achieved: 175 bpmTarget HR (85% APMHR): 151 bpm % of APMHR: 98 BP Resting BP: 131/65 mmHg Max BP: 165/90 mmHg ECG Resting ECG: Sinus Rhythm Recovery ECG: Sinus Rhythm Clinical Reason for Termination: Maximal effort Stress ECG Conclusion 9 minutes halle protocol no ekg changes or arthymia suggestive of ischemia NM EXAM: Myocardial Perfusion REST/STRESS Imaging Protocol: Rest Tc-99m/Stress Tc-99m 1 day Resting Data Rest SPECT myocardial perfusion imaging was performed in supine position 45 minutes following the intravenous injection of 10 mCi of Tc-99m Myoview. Time of rest injection: 0950 Exercise Stress At peak stress, the patient was injected intravenously with 28mCi of Tc-99m Myoview. Time of stress injection: 1110 Gated Stress SPECT was performed 30 minutes after stress injection. The images were gated to evaluate regional wall motion and calculate left ventricular ejection fraction. Study Quality Study: excellent Lung Uptake: Normal Study Data TID = 0.89. Perfusion Wall Motion The rest and stress images show normal left ventricular wall motion. Nuclear Conclusion ECG Findings: negative for ischemia Clinical Findings: negative for ischemia Nuclear Findings: negative for ischemia Exercise Capacity: normal Left Ventricular Function: normal 1. negative treadmill ekg 9 minutes halle protocol no ekg changes or arthymia suggestive of ischemia 2. no exaggerated bp response to exercise 3 normal myocardial perfusion no signficant ischemia noted Conclusion 9 minutes halle protocol no ekg changes or arthymia suggestive of ischemia
--- NOTE | 2021-01-11 11:28 | Treadmill Report ---
[facility] Test Date: 2021-01-08 Test Time: 09:34:25 Pat Name: SUSANNAH TAMEZ Department: Room: Gender: F Insurance Adjuster: Yue Chapin : 1980 Requested By: ROSALBA WASHINGTON Order Number: [id number] Reading MD: Kendell Mabry Interpretive Statements Electronically Signed On 01-11-2021 11:27:32 EDT by Kendell Mabry
== END 2021-01-08 08:43 | disposition home or self-care (01) ==
LOC: ECHO 08:42
PROVIDERS: ATTEND Internal Medicine Cardiovascular Disease
DX: R07.89 Other chest pain (principal); R06.02 Shortness of breath; R73.03 Prediabetes; R06.2 Wheezing; Z82.49 Family history of ischemic heart disease and other diseases of the circulatory system; Z86.16 Personal history of COVID-19
CPT/HCPCS: 78452; 93017; 93306; A9502

== ENCOUNTER 2021-01-19 08:42 | Outpatient (CLI) | payer BC ==
--- NOTE | 2021-01-19 10:19 | Mammography Report ---
BILATERAL DIGITAL DIAGNOSTIC MAMMOGRAM WITH CAD CONVENTIONAL, 01/19/2021 RIGHT LIMITED BREAST ULTRASOUND CLINICAL INFORMATION / INDICATION: The patient presents for a short-term follow-up evaluation of righ t breast nodule from 2019. She reports no new breast symptoms. TECHNIQUE: Digital bilateral mammographic imaging was performed. Limited ultrasound was performed. Th is examination was interpreted with the benefit of Computer-Aided Detection (CAD) analysis. COMPARISON: Bilateral mammogram, 12/13/2019, 11/15/2018 FINDINGS: Breast Density: There are scattered areas of fibroglandular density. MAMMOGRAPHIC FINDINGS: Right breast: There is a 7 mm developing asymmetry in the central right breast best seen on the CC vi ew only. Periareolar oval subcentimeter nodule is unchanged. Left breast: No dominant mass, suspicious calcifications, or architectural distortion in the left clemencia ast. ULTRASOUND FINDINGS: Targeted ultrasound evaluation was performed of the area of interest. Right br east at the 7:00 position 2 cm from the nipple demonstrates a stable circumscribed 8 mm hypoechoic no dule. No new or suspicious sonographic finding is identified. IMPRESSION: 1. Stable appearance of periareolar right breast nodule at the 7:00 position as described most compkateryna addison with a mildly complicated cyst and is considered a benign finding. 2. Developing asymmetry in the central right breast seen on the CC view only. This subtle finding was not identified until the patient had left the breast center. She will be asked to return for additio nal spot compression views of the right breast and possible ultrasound to evaluate this new finding. Follow up recommendation: Special View: Spot BI-RADS Category 0: Incomplete. Needs additional imaging evaluation and/or prior mammograms for [place]. A "normal" or negative report should not discourage follow up or biopsy of a clinically significant f inding. A written summary of these findings will be mailed to the patient. The patient will be entered into a mammography reporting system which will generate a reminder letter for the patient's next appointmen t at the appropriate interval. According to the [employer], yearly mammograms are recommended starting at age 40 and continuing as long as a woman is in good health. Breast MRI is recommended for women with an sinai roximately 20-25% or greater lifetime risk of breast cancer, including women with a strong family his tory of breast or ovarian cancer and women who have been treated for Hodgkin's disease. Signer Name: Yancy Alexander MD Signed: 01/19/2021 10:15 AM Workstation Name: [id number]
== END 2021-01-19 08:43 | disposition home or self-care (01) ==
LOC: MAMMO 08:42
PROVIDERS: ATTEND Obstetrics & Gynecology
DX: N63.13 Unspecified lump in the right breast, lower outer quadrant (principal); N60.01 Solitary cyst of right breast; R92.8 Other abnormal and inconclusive findings on diagnostic imaging of breast
CPT/HCPCS: 77066